=== PATIENT | female | born 1945 | race Caucasian/White ===

== ENCOUNTER 2018-03-10 09:17 | Day surgery (SDC) | payer MEDICAID ==
[~2018-03-10] VITALS: Ht 154.9 cm; Wt 61.5 kg
[2018-03-10] VITALS (12 sets, daily range): BP systolic 112–163; BP diastolic 62–85; PULSE 50–59; TEMP 97.8
[2018-03-10 09:59] LABS: HEMOGLOBIN 11.8 g/dl (12.5-16.0); MEAN CELL VOLUME 90 fl (80.0-100.0); MEAN CORPUSCULAR HEMOGLOBIN 31 pg (27.0-31.0); MEAN CORPUSCULAR HGB CONC 34 g/dl (33.0-37.0); MEAN PLATELET VOLUME 9.4 fl (7.4-10.4); PLATELET COUNT 234 K/mm3 (130-400); RED BLOOD COUNT 3.86 M/mm3 (4.10-5.30); REDCELL DISTRIBUTION WIDTH-CV 13.2 % (11.5-14.5)
[2018-03-10 10:00] LABS: HEMATOCRIT 34.7 % (37.0-47.0)
[2018-03-10 10:07] LABS: CALCIUM 8.4 mg/dL (8.4-10.2); CREATININE, serum 0.4 mg/dL (0.52-1.25); POTASSIUM 3.8 mmol/L (3.4-5.0)
[2018-03-10] MEDS ORDERED: EVENING PRIMRO500 MG PO (10:47)
[2018-03-10] MEDS ORDERED: NATURAL E400 IU PO (10:47)
[2018-03-10] MEDS ORDERED: LIPITOR20 MG PO (10:48)
[2018-03-10] MEDS ORDERED: GLUCOSAMIN 500 PO (10:48)
[2018-03-10] MEDS ORDERED: ASPIRIN E.C. 8181 MG PO (10:48)
[2018-03-10] MEDS ORDERED: NORVASC 10MG10 MG PO (10:49)
[2018-03-10] MEDS ORDERED: NEURONTIN300 MG/CAP PO (10:49)
[2018-03-10] MEDS ORDERED: FOSAMAX 70MG TA70 MG PO (10:50)
[2018-03-10] MEDS ORDERED: OMEGA-31 SGL PO (10:50)
[2018-03-10] MEDS ORDERED: MICARDIS40 MG PO (10:51)
== END 2018-03-10 17:58 | disposition home or self-care (01) ==
LOC: COL.CAR 09:17
PROVIDERS: Internal Medicine Cardiovascular Disease
DX: R07.89 Other chest pain (principal); I10 Essential (primary) hypertension; E78.5 Hyperlipidemia, unspecified; Z86.73 Personal history of transient ischemic attack (TIA), and cerebral infarction without residual deficits
CPT/HCPCS: J1644; J2250; J3010; Q9967

== ENCOUNTER 2018-04-22 06:52 | Outpatient (CLI) | payer MEDICAID ==
[2018-04-22] VITALS (7 sets, daily range): BP systolic 105–142; BP diastolic 60–68; PULSE 58–65; TEMP 97.6
[~2018-04-22] VITALS: Ht 155.1 cm; Wt 61.5 kg
[~2018-04-22 06:52] MED LIST: ASPIRIN E.C. 8181 MG PO; EVENING PRIMRO500 MG PO; FOSAMAX 70MG TA70 MG PO; GLUCOSAMIN 500 PO; LIPITOR20 MG PO; MICARDIS40 MG PO; NATURAL E400 IU PO; NEURONTIN300 MG/CAP PO; NORVASC 10MG10 MG PO; OMEGA-3 FISH1000 MG PO
[2018-04-22 07:34] LABS: MEAN CELL VOLUME 92 fl (80.0-100.0); MEAN CORPUSCULAR HEMOGLOBIN 32 pg (27.0-31.0); MEAN CORPUSCULAR HGB CONC 34 g/dl (33.0-37.0); MEAN PLATELET VOLUME 10.5 fl (7.4-10.4); PLATELET COUNT 209 K/mm3 (130-400); RED BLOOD COUNT 3.81 M/mm3 (4.10-5.30); REDCELL DISTRIBUTION WIDTH-CV 13.4 % (11.5-14.5)
[2018-04-22 07:43] LABS: CALCIUM 8.8 mg/dL (8.4-10.2); CREATININE, serum 0.39 mg/dL (0.52-1.25); POTASSIUM 4.3 mmol/L (3.4-5.0)
[2018-04-22 07:47] LABS: INR 0.9 (0.8-3.0); PROTHROMBIN TIME 10.4 SECONDS (9.7-12.8)
[2018-04-22] MEDS ORDERED: CEPHALEXIN500 M1 PO (09:18)
== END 2018-04-22 11:27 | disposition home or self-care (01) ==
LOC: COL.RAD 06:52
PROVIDERS: Internal Medicine Cardiovascular Disease
DX: G45.9 Transient cerebral ischemic attack, unspecified (principal); I10 Essential (primary) hypertension; E78.5 Hyperlipidemia, unspecified; I08.1 Rheumatic disorders of both mitral and tricuspid valves
CPT/HCPCS: J2250; J3010

== ENCOUNTER → 2018-07-28 | Outpatient (CLI) | payer MEDICAID ==
[~2018-07-28] MED LIST changes: +CEPHALEXIN500 M1 PO
== END ==
LOC: COL.RAD 14:45
DX: I63.9 Cerebral infarction, unspecified (principal)